=== PATIENT | male | born 1975 | race Caucasian/White ===

== ENCOUNTER → 2016-11-20 | Day surgery (SDC) | payer OTHER ==
[~2016-11-20] VITALS: Ht 175.3 cm; Wt 74.8 kg
--- NOTE | 2016-11-20 12:47 | Operative Report ---
Operative/Inv Procedure Report Surgery Date: 11/20/16 Name of Procedure: Lateral internal sphincterotomy with fulguration of anal fissure Pre-Operative Diagnosis: Chronic anal fissure Post-Operative Diagnosis: Chronic anal fissure Estimated Blood Loss: scant Surgeon/Gift Shop Manager: NATHALIA SCHROEDER JR, DO Anesthesia: local monitored anesthesi, block Monitors: Per routine Implants: None Drains: None Specimens: None Complications: None Condition: Good Operative Indication: This is a 41-year-old gentleman with several month history of very symptomatic anal fissure. He has been treated with aggressive medical therapy and has failed to heal. He remains very symptomatic so after careful discussion we decided to proceed to surgery Operative/Procedure Note Note: Patient was taken to the operating room placed in the supine position on the operating table. Following IV sedation he was converted to lithotomy position in Karl stirrups. The gluteal cleft was taped in the abducted position. The perineum was prepped and draped in usual fashion. An anal block was performed using 0.5% Marcaine with epinephrine and a total of 30 mL was injected. Gentle digital exam was performed and then I dilated the anal canal 2 fingerbreadths. A Anna-Eaton the scope was placed into the anal canal. Some residual stool was irrigated away with sterile saline. The retractor was aligned with the left lateral anal canal. Using palpation the edge of the internal anal sphincter was identified. A 1-1/2 cm incision was made in a radial alignment with anal canal over the edge of the internal anal sphincter, intersphincteric groove. I bluntly dissected the connective tissue underneath and exposed the internal anal sphincter muscle. I then developed intersphincteric space bluntly with a hemostat and the internal anal center was placed on stretch. I carefully incised the muscle starting in its inferior edge and stopping at about the level of the dentate line. At this point the field was copiously irrigated. Hemostasis was achieved with cautery. The incision was closed with interrupted 3-0 Vicryl sutures. I adjusted the proctoscope to line with the posterior midline. A chronic fissure was visible here with exposed muscle rolled edges. This was fulgurated with electrocautery. At this point the procedure was concluded. The perineum was cleansed and dried and bacitracin ointment was applied and then a bulky dressing. The patient was converted back down to the supine position, he tolerated the procedure well. He was taken to the recovery area in good condition and all needle sponges and Schmidts were accounted for Findings: Chronic anal fissure posterior midline Discharge Disposition: PACU
== END ==
LOC: STS 02:50
DX: K60.1 Chronic anal fissure (principal); K62.89 Other specified diseases of anus and rectum
CPT/HCPCS: J0690; J2250